=== PATIENT | female | born 1945 | race Caucasian/White ===

== ENCOUNTER 2018-08-17 07:17 | Emergency (ER) | payer MEDICARE, OTHER ==
[2018-08-17] MEDS ORDERED: TRAMADOL HCL 50 MG TABLET PO ONE (08:53)
--- NOTE | 2018-08-17 09:03 | RADIOLOGY REPORT (SQ) ---
EXAM DESCRIPTION: KNEE RIGHT 2 VIEWS COMPLETED DATE/TIME: 08/17/2018 8:24 am REASON FOR STUDY: right knee pain COMPARISON: None. NUMBER OF VIEWS: Two views. TECHNIQUE: AP and lateral radiographic images acquired of the right knee. LIMITATIONS: None. FINDINGS: MINERALIZATION: Normal. BONES: No acute fracture or dislocation. No worrisome bone lesions. Osteophytes patellofemoral compar tment. JOINT: Chondrocalcinosis. OTHER: No other significant finding. IMPRESSION: Osteoarthritis. TECHNICAL DOCUMENTATION: JOB ID: [id number] [employer]- All Rights Reserved Reading location - IP/workstation name: [email or web address]
--- NOTE | 2018-08-17 09:04 | ER Document Report ---
HPI - HPI Patient complains to provider of: Knee pain Time Seen by Provider: 08/17/18 07:55 Onset: Yesterday Onset/Duration: Sudden Quality of pain: Achy Pain Level: Denies Context: Presents to the emergency department with complaints of right knee pain. Patient reports her right posterior knee felt funny yesterday. She reports she heard it pop 3 times and then she could not walk. She reports that it does not hurt when she lays still but with any type of movement or walking she is in excruciating pain. Denies trauma. Denies this ever happening to her in the past. No other complaints such as fever vomiting diarrhea. Exacerbated by: Movement Relieved by: Remaining still Similar symptoms previously: No Recently seen / treated by doctor: No - DERM Skin Color: Normal Past Medical History - General Information source: Patient Last Menstrual Period: men. - Social History Smoking Status: Never Smoker Cigarette use (# per day): No Frequency of alcohol use: None Drug Abuse: None Family History: None Patient has suicidal ideation: No Patient has homicidal ideation: No - Past Medical History Cardiac Medical History: Reports: Hx Hypercholesterolemia, Hx Hypertension Renal/ Medical History: Denies: Hx Peritoneal Dialysis Musculoskeletal Medical History: Reports Hx Arthritis Past Surgical History: Reports: Hx Cholecystectomy, Hx Gynecologic Surgery, Hx Orthopedic Surgery Vertical Provider Document - CONSTITUTIONAL Agree With Documented VS: Yes Exam Limitations: No Limitations General Appearance: WD/WN, Mild Distress - with movement facial grimace - HEENT HEENT: Atraumatic, Normocephalic - NECK Neck: Normal Inspection, Supple. negative: Lymphadenopathy-Left, Lymphadenopathy-Right - RESPIRATORY Respiratory: Breath Sounds Normal, No Respiratory Distress - CARDIOVASCULAR Cardiovascular: Regular Rate - MUSCULOSKELETAL/EXTREMETIES Musculoskeletal/Extremeties: Tender - Erythema no swelling no warmth good pedal pulse - NEURO Level of Consciousness: Awake, Alert, Appropriate - DERM Integumentary: Warm, Dry Adult Front & Back Diagram: 1 - Reports pain Course - Re-evaluation Re-evalutation: 08/17/18 09:19 Patient instructed on neg fx osteoarthritis x-ray. No obvious injury. No swelling noted patient reports that Dr. Mcdermott is her orthopedic. She was instructed on plan of care to include the immobilizer. She will be using her 's walker at home. Declines crutches. She can also reports she has tramadol at home for her pain. - Vital Signs Vital signs: Temp Pulse Resp BP Pulse Ox 98.3 F 74 16 140/58 H 100 08/17/18 07:36 08/17/18 07:36 08/17/18 07:36 08/17/18 07:36 08/17/18 07:36 - Diagnostic Test Radiology reviewed: Image reviewed, Reports reviewed - osteoarthritis Procedures - Immobilization Right Knee Pre-Proc Neuro Vasc Exam: Normal Immobilizer type: Knee immobilizer Performed by: PCT Post-Proc Neuro Vasc Exam: Unchanged from pre-exam Discharge - Discharge Clinical Impression: Right knee pain, Osteoarthritis Condition: Stable Disposition: HOME, SELF-CARE Instructions: Use of Crutches ([facility]), Ice & Elevation ([facility]), Suspected Internal Knee Injury ([facility]), Knee Immobilizing Splint ([facility]), Osteoarthritis ([facility]) Additional Instructions: *You have been evaluated for right knee pain, osteoarthritis *Maintain the splint, use the walker you have at home *Rest/Ice/Elevate *Follow up with orthopedics today-call for an appointment *Take your pain medication as prescribed *Return to ED for worsening condition, changes, needs Forms: Elevated Blood Pressure Referrals: SCHUYLER GASPAR MD [Primary Care Provider] - Follow up in 3-5 days [facility] [Provider Group] - 08/17/18 (Call today for an appointment)
[2018-08-17 10:10] VITALS: BP 144/69
== END 2018-08-17 09:55 | disposition home or self-care (01) ==
LOC: ER 07:17
DX: M25.561 Pain in right knee (principal); M19.90 Unspecified osteoarthritis, unspecified site; E78.00 Pure hypercholesterolemia, unspecified; I10 Essential (primary) hypertension; Z90.49 Acquired absence of other specified parts of digestive tract
CPT/HCPCS: 99284; 73560; L1830; A9270

== ENCOUNTER → 2020-05-30 | Outpatient (CLI) | payer MEDICARE, OTHER ==
--- NOTE | 2020-05-30 11:00 | WOMENS IMAGING REPORT ---
EXAM DESCRIPTION: BONE DENSITY HIP/SPINE IMAGES COMPLETED DATE/TIME: 05/30/2020 10:52 am REASON FOR STUDY: M81.0 AGE-RELATED OSTEOPOROSIS WITHOUT CURRENT PATHOLOGICAL FRACTURE M81.0 AGE-RE LATED OSTEOPOROSIS W/O CURRENT PATHOLOGICAL FRAC COMPARISON: 12/11/2010 TECHNIQUE: Dual-Energy X-ray Absorptiometry (DEXA) of the AP Spine and Hip. LIMITATIONS: None. FINDINGS: LUMBAR SPINE: The bone mineral density (BMD) measured from L1-L4 in the AP projection correlates with a T-score of 1.5, which is normal as defined by the World Health Organization. There has been a +7.6% chain since baseline. HIP: The bone mineral density (BMD) measured in the left hip correlates with a T-score of -0.8, which is n ormal as defined by the World Health Organization. IMPRESSION: 1. LUMBAR SPINE: NORMAL. 2. HIP: NORMAL. COMMENT: The World Health Organization defines low BMD as follows: T-score: Normal: Greater than -1.0 Osteopenia: Between -1.0 and -2.5 Osteoporosis: Less than -2.5 without fractures Established osteoporosis: Less than -2.5 with fractures In general, you may wish to consider: Diagnosis Treatment Follow-up DEXA Normal BMD Prevention 2-3 years Osteopenia Prevention/Therapy 1-2 years Osteoporosis Therapy Yearly TECHNICAL DOCUMENTATION: JOB ID: [id number] [employer]- All Rights Reserved Reading location - IP/workstation name: [email or web address]
== END ==
LOC: WI 10:31
PROVIDERS: ATTEND Internal Medicine
DX: M81.0 Age-related osteoporosis without current pathological fracture (principal)
CPT/HCPCS: 77080